=== PATIENT | male | born 1955 ===

== ENCOUNTER 2021-01-30 06:14 | Outpatient (CLI) | payer BC ==
[~2021-01-30] VITALS: Ht 157.5 cm; Wt 82.8 kg
[2021-01-30] MEDS ORDERED: OMEP40CA27 PO (14:18)
[2021-01-30] MEDS ORDERED: MELO15TA39 PO (14:18)
== END 2021-01-30 14:31 | disposition home or self-care (01) ==
LOC: PREOP 06:14
PROVIDERS: ATTEND Surgery
DX: Z01.812 Encounter for preprocedural laboratory examination (principal); K42.9 Umbilical hernia without obstruction or gangrene

== ENCOUNTER 2021-02-01 07:07 | Day surgery (SDC) | payer BC ==
[~2021-02-01] VITALS: Ht 157.5 cm; Wt 82.8 kg
[2021-02-01] VITALS (12 sets, daily range): BP systolic 115–139; BP diastolic 72–84
[~2021-02-01 07:07] MED LIST: MELO15TA39 PO; OMEP40CA27 PO
[2021-02-01] MEDS ORDERED: ceFAZolin 2 GM IV Premixed 50 ML IV ONE (07:15)
[2021-02-01] MEDS ORDERED: LIDOCAINE/EPI 1%-1:100,000 (XYLOCAINE) 20ML ONE (07:24)
[2021-02-01] MEDS: LACTATED RINGERS 1,000 ML IV PRN ×2 (07:50→09:15)
[2021-02-01] MEDS ORDERED: ONDANSETRON 4 MG/2 ML (SDV) Z0FRAN ONE (07:56)
[2021-02-01] MEDS ORDERED: GLYCOPYRROLATE 0.2 MG/ML (ROBINUL) 2 ML VIAL ONE (07:56)
[2021-02-01] MEDS ORDERED: NEOSTIGMINE 3 MG/3 ML VIAL ONE (07:56)
[2021-02-01] MEDS ORDERED: ROCURONIUM 10 MG/ML 5 ML SYRINGE IV ONE (07:56)
[2021-02-01] MEDS ORDERED: LIDOCAINE PF 2% 5 ML (XYLOCAINE) VIAL ONE (07:56)
[2021-02-01] MEDS ORDERED: SEVOFLURANE (ULTANE) 15 ML INHAL SOLN ONE (07:56)
[2021-02-01] MEDS ORDERED: proPOfol 200 MG/20 ML (DIPRIVAN) VIAL IV ONE (07:56)
[2021-02-01] MEDS ORDERED: fentaNYL INJ 100 MCG/2 ML AMP ONE (07:57)
[2021-02-01] MEDS ORDERED: MIDAZOLAM 2 MG/2 ML (VERSED) VIAL ONE (07:57)
--- NOTE | 2021-02-01 07:59 | Progress Note-Pre Operative ---
Pre-Operative Progress Note H&P Reviewed The H&P was reviewed, patient examined and no changes noted. Date Seen by Provider: Feb 01, 2021 Time Seen by Provider: 07:59 Date H&P Reviewed: Feb 01, 2021 Time H&P Reviewed: 07:59 Pre-Operative Diagnosis: umbilical hernia DELMA ROSA DO Feb 01, 2021 07:59
[2021-02-01] MEDS ORDERED: ceFAZolin INJECTION 1,000 MG ONE (09:14)
--- NOTE | 2021-02-01 09:49 | Progress Note-Post Operative ---
Post-Operative Progess Note Surgeon (s)/Retail Brand Ambassador (s) Surgeon DELMA ROSA DO Retail Brand Ambassador: Dr. Bean to assist in retraction dissection and closure Pre-Operative Diagnosis umbilical hernia Post-Operative Diagnosis incarceratd umbilical hernia Procedure & Operative Findings Date of Procedure 02/01/21 Procedure Performed/Findings PROCEDURE: Laparoscopic incarcerated umbilical hernia repair with mesh. COMPLICATIONS: None. INDICATIONS: The patient is a 65, male with an umbilical hernia hernia, which has continued to increase in size and cause discomfort. The patient was explained the risk and benefits of the procedure and wished to proceed with the procedure. Consent was signed on the chart. DESCRIPTION OF PROCEDURE: The patient was taken into the operating suite, prepped and draped in sterile fashion. Surgical pause was performed. Local anesthetic was infiltrated in left upper quadrant. A 15 blade scalpel was used to make a small skin incision. Cautery was used to dissect down to the fascia, which was then scored and divided the muscle, went through the posterior sheath and a balloon trocar was inserted into the abdomen. The abdomen was then insufflated. Inflamed fat incarcerated through defect. A 5 mm trocar was placed in the right lower quadrant and a 5 mm trocar was placed in left lower quadrant. [The defect was then closed using 0 Vicryl with a Matthew-Rhoda].Echo Ventralight mesh was then inserted in the abdomen grabbed through the stab incision. The balloon was inflated on the mesh. Circumferential tacks were placed with a SecureStrap Tacker. The balloon was then removed and inner crown was created as well. The mesh was tacked with pressure being decreased. The 12 mm fascial defect was then closed using 0 Vicryl. The abdomen was then desufflated,the trocars were removed. The skin was then closed using 4-0 Monocryl in a running subcuticular fashion. The abdomen was washed and dried and Skin Affix was placed over the incisions. The patient tolerated procedure well without any complications. She was taken to recovery room in stable condition. Anesthesia Type general Estimated Blood Loss Estimated blood loss (mL): minimal Specimens/Packing Specimens Removed incarcerated fat DELMA ROSA DO Feb 01, 2021 09:49
[2021-02-01] MEDS ORDERED: DOCU-143 PO (09:50)
[2021-02-01] MEDS ORDERED: ACHD5005 PO (09:50)
--- NOTE | 2021-02-01 09:54 | Discharge Inst-Simple/Standard ---
Discharge Inst-Standard Discharge Medications New, Converted or Re-Newed RX: RX on Chart Patient Instructions/Follow Up Plan of Care/Instructions/FU: 2 weeks Filomena Activity as Tolerated: No Discharge Diet: Regular Diet Other Inst to Patient Follow up Appt: Make appointment for 2 week. Instructions: No lifting greater than 10 pounds. No strenuous activity. May shower in 24 hours, no tub bath or soaking. Use incentive spirometer at home as directed. No Smoking Skin/Wound Care: You have special glue over your incision that will fall off on it's own. You have a bandage at umbilicus, remove it in 48 hours. the glue under bandage at this incision, it will fall off on its own. Symptoms to Report: Appetite Changes, Extremity Discoloration, Numbness/Tingling, Swelling Increased, Bleeding Excessive, Eyesight Changes, Pain Increased, Urine Color Change, Constipation(Persistent), Fever over 101 degree F, Pain/Pressure in chest, Urinating Difficulty, Cough Up/Vomit Blood, Heart Beat Irreg/Pounding, Pain/Pressure in jaw, Vaginal Bleeding Increase, Cramps in feet or legs, Lightheadedness, Pain/Pressure in shoulder, Diarrhea(Persistent), Memory Changes Suddenly, Questions/Concerns, Weight gain consecutive days, Dizziness/Fainting, Nausea/Vomiting, Shortness of Breath, Weight gain over 2 pounds If questions or concerns contact your physician Or seek help at emergency department. DELMA ROSA DO Feb 01, 2021 09:54
[2021-02-01] MEDS ORDERED: HYDROmorphone 2 MG/ML VIAL (DILAUDID) IV ONE (10:30)
[2021-02-01] MEDS ORDERED: morphine INJ 10 MG/ML 1ML (SYR OR VIAL) IVP ONE (10:30)
[2021-02-01] MEDS: ONDANSETRON 4 MG/2 ML (SDV) Z0FRAN IVP PRN ×2 (10:51→11:02)
[2021-02-01] MEDS ORDERED: HYDROcodone/APAP 5 MG/325 MG (LORTAB) TAB ONE (11:23)
[2021-02-01] MEDS ORDERED: HYDROcodone/APAP 5 MG/325 MG (LORTAB) TAB PO ONE (11:30)
--- NOTE | 2021-02-01 14:25 | Anesthesia-General Post-Op ---
General Patient Condition Mental Status/LOC: Same as Preop Cardiovascular: Satisfactory Nausea/Vomiting: Absent Respiratory: Satisfactory Pain: Controlled Complications: Absent Post Op Complications Complications None Follow Up Care/Instructions Patient Instructions None needed. Anesthesia/Patient Condition Patient Condition Patient was seen after the procedure and he was doing well, no complaints, stable vital signs, no apparent adverse anesthesia problems. ABY TRAN DO Feb 01, 2021 14:25
== END 2021-02-01 12:50 | disposition home or self-care (01) ==
LOC: SDC 07:07
PROVIDERS: ATTEND Surgery
DX: K42.0 Umbilical hernia with obstruction, without gangrene (principal); E66.9 Obesity, unspecified; Z79.899 Other long term (current) drug therapy; Z68.33 Body mass index [BMI] 33.0-33.9, adult
CPT/HCPCS: 49653; 87081; C1781; 88302